=== PATIENT | male | born 2000 | race Caucasian/White ===

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

== ENCOUNTER 2019-02-10 19:58 | Emergency (ER) | payer BC ==
--- NOTE | 2019-02-10 20:21 | UC ---
Respiratory Complaint HPI - HPI Summary HPI Summary: 18 y/o male presents to the urgent care c/o sore throat w/ enlarged tonsils, nasal congestion w/ yellowish nasal discharge for the past 2 weeks. Symptoms worsen about 2 days ago w/ dry cough and RT ear pain. He has been taken Ibuprofen PO and Tylenol PO w/o any improvement. Pt states last dose of Tylenol was around 1700. Pain w/ swallowing is 8/10 radiating to the Rt ear Pt denies fever, dizziness, MARTINES, SOB, wheezing, chest pain,abdominal pain, N/V/d. Pt is UTD w/ all vaccines for his age. - History of Current Complaint Stated Complaint: SORE THROAT Time Seen by Provider: 02/10/19 20:20 Hx Obtained From: Patient Onset/Duration: Gradual Onset, Lasting Weeks - 2 weeks, Still Present, Worse Since - 2 days Timing: Constant Severity Initially: Mild Severity Currently: Moderate Pain Intensity: 8 Pain Scale Used: 0-10 Numeric Character: Cough: Nonproductive Alleviating Factors: OTC Meds Associated Signs And Symptoms: Positive: URI, Nasal Congestion, Sinus Discomfort. Negative: Dyspnea, Fever, Chills, Wheezing - Risk Factors Pulmonary Embolism Risk Factors: Negative Cardiac Risk Factors: Negative Pseudomonas Risk Factors: Negative Tuberculosis Risk Factors: Negative - Allergies/Home Medications Allergies/Adverse Reactions: Allergies Allergy/AdvReac Type Severity Reaction Status Date / Time No Known Allergies Allergy Verified 02/10/19 20:20 PMH/Surg Hx/FS Hx/Imm Hx Previously Healthy: Yes - Pt denies PMHX - Surgical History Surgical History: None - Family History Known Family History: Positive: None - Father denies FMHX - Social History Occupation: Student Lives: With Family Alcohol Use: None Substance Use Type: None Smoking Status (MU): Never Smoked Tobacco - Immunization History Vaccination Up to Date: Yes Review of Systems All Other Systems Reviewed And Are Negative: Yes Constitutional: Positive: Negative Skin: Positive: Negative Eyes: Positive: Negative ENT: Positive: Sore Throat, Ear Ache - RT ear pain and pressure, Nasal Discharge - yellowish, Sinus Congestion, Sinus Pain/Tenderness, Other - yellowish PND Respiratory: Positive: Cough - dry Cardiovascular: Positive: Negative Gastrointestinal: Positive: Negative Genitourinary: Positive: Negative Motor: Positive: Negative Neurovascular: Positive: Negative Musculoskeletal: Positive: Negative Neurological: Positive: Negative Psychological: Positive: Negative Is Patient Immunocompromised?: No Physical Exam - Summary Physical Exam Summary: VITAL SIGNS: Reviewed. GENERAL: Patient is a well developed and nourished male adolescent who is sitting comfortable in the examining table. Patient is not in any acute respiratory distress. HEAD AND FACE: No signs of trauma. No ecchymosis, hematomas or skull depressions. Positive maxillary and frontal sinus tenderness. EYES: PERRLA, EOMI x 2, No injected conjunctiva, no nystagmus. No photophobia. EARS: Hearing grossly intact. RT external Ear canals impacted w/ cerumen unable to visualize RT TM. LF external ear canal WNL, LF TM WNL. MOUTH: Positive pharynx with erythema, exudates, palatal petechiae. B/L tonsillar enlargement with no exudate. Uvula in midline. yellowish PND NECK: Supple, trachea is midline, Positive anterior cervical lymphadenopathy, no JVD, no carotid bruit, no c-spine tenderness, neck with full ROM. No meningeal signs, no Kernig's or brudzinskis signs. CHEST: Symmetric, no tenderness at palpation LUNGS: Clear to auscultation bilaterally. No wheezing or crackles. CVS: Regular rate and rhythm, S1 and S2 present, no murmurs or gallops appreciated. ABDOMEN: Soft, non-tender. No signs of distention. No rebound no guarding, and no masses palpated. Bowel sounds are normal. EXTREMITIES: FROM in all major joints, no edema, no cyanosis or clubbing. NEURO: Alert and oriented x 3. No acute neurological deficits. Speech is normal and follows commands. SKIN: Dry and warm Triage Information Reviewed: Yes Respiratory Course/Dx - Course Course Of Treatment: 18 y/o male presents to the urgent care c/o sore throat w/ enlarged tonsils, nasal congestion w/ yellowish nasal discharge for the past 2 weeks. Symptoms worsen about 2 days ago w/ dry cough and RT ear pain. He has been taken Ibuprofen PO and Tylenol PO w/o any improvement. Pt states last dose of Tylenol was around 1700. Pain w/ swallowing is 8/10 radiating to the Rt ear Pt denies fever, dizziness, MARTINES, SOB, wheezing, chest pain,abdominal pain, N/V/d. Pt is UTD w/ all vaccines for his age. Hx obtained. Pt w/ Tonsillitis, sinusitis and RT external ear canal impacted on examination. Pt is hemodynamically stable, Vitals: WNL. Rapid strep Ordered: negative. RTt ear irrigation ordered. Irrigation performed by Nurse. Pt tolerated well procedure w/o any adverse effect. RT external ear canal WNL, RT TM injected w/ erythema, no perforation. Pt decline Monospot ordered. Pt will be Rx Amoxicillin PO first dose gven tonight. Also Flonase and Peridex mouth wash as directed below. Pt advised to continue taken ibuprofen PO to alleviates symptoms of pain and swelling. Advised on hand washing to avoid spreading. Pt advised to rest, eat well and avoid strenuous exercise. If symptoms do not improve or worsen advised to return to the urgent care or f/u with his PCP for further evaluation and treatment. D/C instructions explained. Pt understood and agreed - Differential Dx/Diagnosis Differential Diagnosis/HQI/PQRI: Bronchitis, Influenza, Laryngitis, Lower Resp Infection, Sinusitis, Other - pharyngitis, tonsillitis Provider Diagnosis: Acute bacterial sinusitis, Acute tonsillitis, Right otitis media, Impacted cerumen of right ear Discharge ED - Sign-Out/Discharge Documenting (check all that apply): Patient Departure - D/C home All imaging exams completed and their final reports reviewed: No Studies - Discharge Plan Condition: Stable Disposition: HOME Prescriptions: Amoxicillin PO (*) [Amoxicillin 875 MG (*)] 875 mg PO BID #19 tab Chlorhexidine MOUTHWASH 0.12%* [Peridex Mouth Wash 0.12%*] 15 ml .SEE ORDER BID #1 oral.soln Fluticasone NASAL SPRAY 50MCG* [Flonase NASAL SPRAY 50MCG*] 2 spray BOTH NARES DAILY #1 btl Patient Education Materials: Sinusitis (ED), Tonsillitis (ED) Referrals: Ana Canas PA [Primary Care Provider] - 3 Days Additional Instructions: 1- Please increase fluid intake and rest. take full course of antibiotics to avoid resistance. Take yogurts w/ probiotics or Culturelle to protect your GI system 2-Use Flonase as directed to help drain fluid. Also buy saline drops to clear sinuses 3-Use Peridex mouth wash as directed to alleviate symptoms. 3-Continue taking Ibuprofen PO 600mg q6-8hrs prn after meals to alleviate pain and swelling. 4-Please f/u w/ your PCP in 3 days if symptoms do not improve for further management and treatment - Billing Disposition and Condition Condition: STABLE Disposition: Home
[2019-02-10 20:23] VITALS: BP 125/66
[2019-02-10] MEDS ORDERED: Ibuprofen TAB* 600 MG PO ONE (21:01)
[2019-02-10] MEDS ORDERED: Amoxicillin PO (*) 500 MG CAP PO ONE (21:12)
== END 2019-02-10 21:29 | disposition home or self-care (01) ==
LOC: UCCORT 19:58
DX: J01.90 Acute sinusitis, unspecified (principal); J03.90 Acute tonsillitis, unspecified; H66.91 Otitis media, unspecified, right ear; H61.21 Impacted cerumen, right ear
CPT/HCPCS: 87651; 99213; A9270-GY; G0463